=== PATIENT | female | born 1945 | race Asian ===

== ENCOUNTER 2022-03-02 20:25 | Emergency (ER) | payer OTHER ==
--- NOTE | 2022-03-02 20:57 | RAD REPORT ---
EXAM DESCRIPTION: CT - [id number] - 03/02/2022 8:43 pm CLINICAL HISTORY: Trauma, head and neck injury. fall, head injury, dizzy COMPARISON: No comparisons TECHNIQUE: Axial 5 mm thick images of the head were obtained. Axial 2 mm thick images of the cervical spine were obtained with sagittal and coronal reconstruction images generated and reviewed. All CT scans are performed using dose optimization technique as appropriate and may include automated exposure control or mA/KV adjustment according to patient size. FINDINGS: CT HEAD WITHOUT CONTRAST: No acute hemorrhage, hydrocephalus or extra-axial collection is identified.No areas of brain edema or midline shift. Left occipital scalp hematoma. Remote appearing right basal ganglia lacunar infarct. Right maxillary sinus thickening.The calvarium is intact. CT CERVICAL SPINE WITHOUT CONTRAST: No fracture or subluxation.No prevertebral soft tissues swelling is identified. IMPRESSION: No acute intracranial or cervical spine findings.No skull fracture.
--- NOTE | 2022-03-02 22:17 | EDPHYS ---
Physician Documentation [facility] Name: Samia Vera Age: 76 yrs Sex: Female : 1945 Arrival Date: 03/02/2022 Time: 20:27 Bed 12 Private MD: ED Physician James Felix HPI: 03/03 00:38 This 76 yrs old Female presents to ER via EMS with complaints of Fall Injury. kb 00:38 Details of fall: The patient fell from an upright position. Onset: The symptoms/episode kb began/occurred just prior to arrival. Associated injuries: The patient sustained injury to the head, hematoma, pain. Severity of symptoms: At their worst the symptoms were moderate, in the emergency department the symptoms are unchanged. The patient has not experienced similar symptoms in the past. The patient has not recently seen a physician. Patient reports she is taken a picture outside of [employer] when she lost her footing on the rocks and fell striking her head on the cement. Denies LOC.. Historical: - Allergies: 03/02 21:10 Aspirin; bm7 21:10 Sulfa (Sulfonamide Antibiotics); bm7 - Home Meds: 21:10 metformin 500 mg Oral Tb24 1 tab once daily [Active]; lisinopril 10 mg Oral tab 1 tab bm7 once daily [Active]; Plavix 75 mg Oral tab 1 tab once daily [Active]; losartan 25 mg oral tab 1 tab once daily [Active]; - PMHx: 21:10 Diabetes mellitus; Hypertensive disorder; bm7 - PSHx: 21:10 None; bm7 - Immunization history:: Adult Immunizations up to date, Client reports receiving the 2nd dose of the Covid vaccine, Client reports receiving the 1st dose of the Covid vaccine. - Social history:: Smoking status: Patient denies any tobacco usage or history of. - Immunization history: Last tetanus immunization: unknown. ROS: 03/03 00:38 Constitutional: Negative for fever, chills, and weight loss. kb Neuro: Positive for headache. All other systems are negative. Exam: 00:37 Constitutional: This is a well developed, well nourished patient who is awake, alert, kb and in no acute distress. Eyes: Pupils equal round and reactive to light, extra-ocular motions intact. Lids and lashes normal. Conjunctiva and sclera are non-icteric and not injected. Cornea within normal limits. Periorbital areas with no swelling, redness, or edema. ENT: Moist Mucous membranes Cardiovascular: Regular rate and rhythm with a normal S1 and S2. No gallops, murmurs, or rubs. No pulse deficits. Respiratory: Respirations even and unlabored. No increased work of breathing. Talking in full sentences Abdomen/GI: Soft, non-tender. No distention MS/ Extremity: Pulses equal, no cyanosis. Neurovascular intact. Full, normal range of motion. Neuro: Awake and alert, GCS 15, oriented to person, place, time, and situation. Moves all extremities. Normal gait. Psych: Awake, alert, with orientation to person, place and time. Behavior, mood, and affect are within normal limits. 00:37 Head/face: Noted is no obvious of injury or deformity except hematoma, that is moderate, of the left occipital area. 00:37 Skin: injury, Hematoma to the back of the head.. Vital Signs: 03/02 21:07 BP 176 / 76; Pulse 87; Resp 16; Temp 98.5(TE); Pulse Ox 100% on R/A; Weight 63.5 kg bm7 (R); Height 5 ft. 2 in. (157.48 cm); Pain 5/10; 22:51 BP 160 / 84; Pulse 82; Resp 16; Pulse Ox 100% on R/A; Pain 3/10; bm7 21:07 Body Mass Index 25.61 (63.50 kg, 157.48 cm) bm7 Brandyn Coma Score: 21:12 Eye Response: spontaneous(4). Verbal Response: oriented(5). Motor Response: obeys bm7 commands(6). Total: 15. Trauma Score (Adult): 21:12 Eye Response: spontaneous(1); Verbal Response: oriented(1); Motor Response: obeys bm7 commands(2); Systolic BP: > 89 mm Hg(4); Respiratory Rate: 10 to 29 per min(4); Brandyn Score: 15; Trauma Score: 12 MDM: 20:34 Patient medically screened. kb 03/03 00:37 Data reviewed: vital signs, nurses notes. Data interpreted: Pulse oximetry: on room air kb is 100 %. Interpretation: normal. Counseling: I had a detailed discussion with the patient and/or guardian regarding: the historical points, exam findings, and any diagnostic results supporting the discharge/admit diagnosis, radiology results, the need for outpatient follow up, a family practitioner, to return to the emergency department if symptoms worsen or persist or if there are any questions or concerns that arise at home. 03/02 20:35 Order name: CT Head C Spine; Complete Time: 20:58 kb Administered Medications: 03/02 22:50 Drug: Tylenol 1000 mg Route: PO; bm7 22:51 Follow up: Response: No adverse reaction bm7 Disposition: 03/03 05:54 Co-signature as Attending Physician, James Felix MD I agree with the assessment and kdr plan of care. Disposition Summary: 03/02/22 22:16 Discharge Ordered Location: Home kb Condition: Stable kb Diagnosis - Fall on same level from slipping, tripping and stumbling without subsequent kb striking against object - Unspecified injury of head, initial encounter kb Followup: kb - With: Emergency Department - When: As needed - Reason: Worsening of condition Followup: kb - With: Private Physician - When: 2 - 3 days - Reason: Recheck today's complaints, Continuance of care, Re-evaluation by your physician Discharge Instructions: - Discharge Summary Sheet kb - Hematoma, [id number] kb - Head Injury, Adult, [id number] kb - Concussion, Adult, [id number] kb Forms: - Medication Reconciliation Form kb - Thank You Letter kb - Antibiotic Education kb - Prescription Opioid Use kb Signatures: Dispatcher [employer] EDMS Tonia Sarmiento, DIRECTOR OF INTEGRATED MARKETING-C DIRECTOR OF INTEGRATED MARKETING-James Hamlin MD MD [facility] Steph Parnell, RN RN bm7
--- NOTE | 2022-03-02 22:17 | ER ---
Nurse's Notes [facility] Name: Samia Vera Age: 76 yrs Sex: Female : 1945 Arrival Date: 03/02/2022 Time: 20:27 Bed 12 Private MD: Diagnosis: Fall on same level from slipping, tripping and stumbling without subsequent striking against object;Unspecified injury of head, initial encounter Presentation: 03/02 21:07 Chief complaint: EMS states: the patient was taking pictures at [employer] and slipped and bm7 hit the back of her head. She did not have any LOC but she does have a hematoma to the back of her head. Coronavirus screen: At this time, the client does not indicate any symptoms associated with coronavirus-19. Ebola Screen: No symptoms or risks identified at this time. Initial Sepsis Screen: Does the patient meet any 2 criteria? No. Patient's initial sepsis screen is negative. Does the patient have a suspected source of infection? No. Patient's initial sepsis screen is negative. Risk Assessment: Do you want to hurt yourself or someone else? Patient reports no desire to harm self or others. Onset of symptoms is unknown. Care prior to arrival: Bleeding of injury controlled. IV initiated. 18 GA, in the left antecubital area, Glucose check: 216. Mechanism of Injury: Fall from standing position. Transition of care: patient was not received from another setting of care. 21:07 Method Of Arrival: EMS: [facility] 21:07 Acuity: BRIDGETTE 2 7 21:12 Trauma event details: Injury occurred in the [facility], Injury occurred: in a [facility] public building. Injury occurred: March 02, 2022. 22:22 Care prior to arrival: None. 7 22:23 Mechanism of Injury: Fall from standing position. [facility] Triage Assessment: 21:10 General: Appears in no apparent distress. uncomfortable, Behavior is calm, cooperative, bm7 appropriate for age. Pain: Complains of pain in left parietal area and right parietal area. EENT: No deficits noted. No signs and/or symptoms were reported regarding the EENT system. Neuro: Level of Consciousness is awake, alert, obeys commands, Oriented to person, place, time, situation, Machine Deicer Element Winder are equal bilaterally Moves all extremities. Speech is normal, Facial symmetry appears normal, Pupils are PERRLA. Cardiovascular: No deficits noted. Chest pain is denied. Respiratory: No deficits noted. Airway is patent Respiratory effort is even, unlabored, Respiratory pattern is regular, symmetrical, Breath sounds are clear bilaterally. Denies shortness of breath at rest, on exertion. GI: No deficits noted. No signs and/or symptoms were reported involving the gastrointestinal system. : No deficits noted. No signs and/or symptoms were reported regarding the genitourinary system. Derm: No deficits noted. No signs and/or symptoms reported regarding the dermatologic system. Musculoskeletal: No deficits noted. No signs and/or symptoms reported regarding the musculoskeletal system. Injury Description: hematoma to the back of the head. Trauma Activation: Physician: ED Physician; Name: DEVEN; Notified At: ; Arrived At: Physician: General Surgeon; Name: ; Notified At: ; Arrived At: Physician: Radiology; Name: ; Notified At: ; Arrived At: Physician: Respiratory; Name: ; Notified At: ; Arrived At: Physician: Lab; Name: ; Notified At: ; Arrived At: Historical: - Allergies: 21:10 Aspirin; bm7 21:10 Sulfa (Sulfonamide Antibiotics); bm7 - Home Meds: 21:10 metformin 500 mg Oral Tb24 1 tab once daily [Active]; lisinopril 10 mg Oral tab 1 tab bm7 once daily [Active]; Plavix 75 mg Oral tab 1 tab once daily [Active]; losartan 25 mg oral tab 1 tab once daily [Active]; - PMHx: 21:10 Diabetes mellitus; Hypertensive disorder; bm7 - PSHx: 21:10 None; bm7 - Immunization history:: Adult Immunizations up to date, Client reports receiving the 2nd dose of the Covid vaccine, Client reports receiving the 1st dose of the Covid vaccine. - Social history:: Smoking status: Patient denies any tobacco usage or history of. - Immunization history: Last tetanus immunization: unknown. Screenin:12 Abuse screen: Denies threats or abuse. Tuberculosis screening: No symptoms or risk bm7 factors identified. 22:06 Nutritional screening: No deficits noted. Fall Risk None identified. bm7 Primary Survey: 21:12 NO uncontrolled hemorrhage observed. A: The client is awake and alert. The airway is bm7 patent. Breathing/Chest: Spontaneous respiratory effort, equal unlabored respirations, breath sounds clear bilaterally, regular pattern, symmetrical chest rise and fall. Respiratory effort: spontaneous, unlabored, Breath sounds: clear, Respiratory pattern: regular, Chest inspection: symmetrical rise and fall of the chest. Circulation: No external hemorrhage present. Regular and strong central pulse, skin warm/dry/normal color. Disability Pupils are equal, round, reactive to light and accommodation. Exposure/Environment: All clothing and personal items were removed. Forensic evidence collection is not deemed to be indicated at this time. Items placed in patient belonging bag. There is no evidence of uncontrolled external bleeding. Obvious injury(ies) are noted at this time: HEMATOMA TO THE BACK OF THE HEAD. 22:22 Reassessment Breathing: Spontaneous respiratory effort, equal unlabored respirations, bm7 breath sounds clear bilaterally, regular pattern with symmetrical chest rise and fall. Respiratory effort Spontaneous Unlabored Breath sounds Clear Respiratory pattern Regular Chest inspection Symmetrical. Secondary Survey: 22:21 HEENT: No deficits noted. HEENT: Head Other HEMATOMA TO THE BACK OF THE HEAD. bm7 Gastrointestinal: No deficits noted. : No deficits noted. Musculoskeletal: No deficits noted. Assessment: 22:06 Reassessment: Patient and/or family updated on plan of care and expected duration. Pain bm7 level reassessed. Patient is alert, oriented x 3, equal unlabored respirations, skin warm/dry/pink. Vital Signs: 21:07 BP 176 / 76; Pulse 87; Resp 16; Temp 98.5(TE); Pulse Ox 100% on R/A; Weight 63.5 kg bm7 (R); Height 5 ft. 2 in. (157.48 cm); Pain 5/10; 22:51 BP 160 / 84; Pulse 82; Resp 16; Pulse Ox 100% on R/A; Pain 3/10; bm7 21:07 Body Mass Index 25.61 (63.50 kg, 157.48 cm) bm7 Brandyn Coma Score: 21:12 Eye Response: spontaneous(4). Verbal Response: oriented(5). Motor Response: obeys bm7 commands(6). Total: 15. Trauma Score (Adult): 21:12 Eye Response: spontaneous(1); Verbal Response: oriented(1); Motor Response: obeys bm7 commands(2); Systolic BP: > 89 mm Hg(4); Respiratory Rate: 10 to 29 per min(4); Brandyn Score: 15; Trauma Score: 12 ED Course: 20:27 Patient arrived in ED. wm 20:34 Tonia Sarmiento FNP-C [facility]. kb 20:34 James Felix MD is Attending Physician. kb 20:45 CT Head C Spine In Process Unspecified. EDMS 21:07 Steph Parnell, RN is Primary Nurse. bm7 21:10 Triage completed. bm7 21:10 Arm band placed on left wrist. bm7 21:12 Patient has correct armband on for positive identification. Bed in low position. Call bm7 light in reach. Side rails up X2. Adult w/ patient. Patient maintains SpO2 saturation greater than 95% on room air. 21:12 Patient maintains SpO2 saturation greater than 95% on room air. bm7 22:22 No provider procedures requiring assistance completed. IV discontinued, intact, bm7 bleeding controlled, No redness/swelling at site. Pressure dressing applied. 22:23 Thermoregulation: warm blanket given to patient. bm7 22:34 Primary Nurse role handed off by Steph Parnell, IGNACIO desai Administered Medications: 22:50 Drug: Tylenol 1000 mg Route: PO; bm7 22:51 Follow up: Response: No adverse reaction bm7 Medication: 22:06 VIS not applicable for this client. bm7 Intake: 22:21 PO: 100ml (Water); Total: 100ml. bm7 Outcome: 22:16 Discharge ordered by . kb 22:21 Discharged to Law Enforcement bm7 22:21 Condition: improved 22:21 Patient's length of stay was not longer than 2 hours. 22:22 Discharge instructions given to patient, police, Instructed on discharge instructions, bm7 follow up and referral plans. medication usage, wound care, Demonstrated understanding of instructions, follow-up care, wound care, Prescriptions given X 22:23 Patient left the ED. bm7 22:51 Patient left the ED. bm7 Signatures: Dispatcher [employer] EDVA Tonia Sarmiento FNP-C ELECTROTYPER HELPER-Steph Parisi, RN RN Elizabeth Lamar Corrections: (The following items were deleted from the chart) 22:51 22:22 Discharge instructions given to patient, police, Instructed on discharge bm7 instructions, follow up and referral plans. medication usage, wound care, Demonstrated understanding of instructions, follow-up care, medications, wound care, Prescriptions given X 1, bm7
[2022-03-02] MEDS ORDERED: ACETAMINOPHEN 500 MG TAB ONE (22:45)
[2022-03-03 21:28] VITALS: TEMP 98.5; O2SAT 100
[2022-03-03 22:33] VITALS: BP 160/84
== END 2022-03-02 22:51 | disposition home or self-care (01) ==
LOC: ER 20:25
DX: S09.90XA Unspecified injury of head, initial encounter (principal); W01.0XXA Fall on same level from slipping, tripping and stumbling without subsequent striking against object, initial encounter; E11.9 Type 2 diabetes mellitus without complications; I10 Essential (primary) hypertension; Z79.01 Long term (current) use of anticoagulants
CPT/HCPCS: 70450; 72125; 99284